=== PATIENT | male | born 1940 | race Caucasian/White ===

== ENCOUNTER 2019-12-22 11:55 | Emergency (ER) | payer MEDICARE, OTHER, SELFPAY ==
[2019-12-22 11:56] VITALS: BP 146/77; PULSE 70; RESP 14; TEMP 36.4; O2SAT 98; BMI 25.0
--- NOTE | 2019-12-22 12:14 | ED.EXTPRO ---
HPI - Extremity Problem <Ni Tang PA-C - Last Filed: 12/22/19 19:39> General Chief complaint: Extremity Problem,Nontraumatic Stated complaint: pain left lower buttocks for a few months Time Seen by Provider: 12/22/19 12:13 Source: patient Mode of arrival: Ambulatory Limitations: no limitations History of Present Illness HPI Narrative: This is a 79-year-old gentleman with a history of hypothyroid and hyperlipidemia who presents with left-sided positional buttock pain that has been going on for 6-8 weeks. He says the pain came on gradually, he initially thought it could be due to sitting on his wallet so he switched to a front pocket wallet, however this did not resolve the problem. He describes the pain as right in the bottom/middle of his buttock when he is sitting, and it is a sharp pain that is constant while sitting though he says it takes a little while to occur after he sits down. He says it is a 4 possibly a 5/10 when he is feeling it. He gets some relief from the pain if he changes his position, he has not tried heat, ice, he has been taking Aleve occasionally. He denies any recent change to his physical activity, any traumatic injury to the area, numbness, tingling, radiation of his pain, discoloration of his buttock or lower extremity, shortness of breath, chest pain, abdominal pain, back pain, saddle paresthesia, loss of bowel or bladder function, or any other symptoms. This is an isolated complaint and he says he has otherwise been in his normal state of health. He is currently living on a boat with his though he says that they walk at least a few miles every day, he is from [place] where his PCP is and present to the emergency department today because they are going to be heading [place] to [facility] where there is no hospital he hopes to have an answer for the cause of his pain. MD Complaint: extremity pain (Left buttock) Onset (ago): month(s) (2) Pain Consistency: intermittent Location: left and lower extremity Severity scale (1-10): 4 Quality: sharp Radiation: none Relieving factors: movement Associated symptoms: denies other symptoms Related Data Previous Rx's Medication Instructions Recorded lidocaine 3 patch TOP DAILY #30 each 12/22/19 Allergies Allergy/AdvReac Type Severity Reaction Status Date / Time No Known Drug Allergies Allergy Verified 12/22/19 12:04 Review of Systems <Ni Tang PA-C - Last Filed: 12/22/19 19:39> Review of Systems Narrative: GENERAL: Denies chills, fatigue, malaise, fever, sweats. HEENT: Denies sinus pain, ear pain, sore throat, difficulty swallowing, dizziness. RESPIRATORY: Denies dyspnea, cough, wheezing, hemoptysis, sputum. CARDIOVASCULAR: Denies chest pain, palpitations, orthopnea, edema, GASTROINTESTINAL: Denies nausea, vomiting, abdominal pain, diarrhea, constipation, melena. : Denies dysuria, frequency, incontinence, hematuria, urinary retention. MUSCULOSKELETAL: Positive for left buttock pain that occurs while he is sitting. Denies weakness, joint pain, or bony pain SKIN: Denies rash, skin lesions, or other NEUROLOGIC: Denies weakness, headache, numbness, change in speech, confusion, seizures, incoordination. PSYCHIATRIC: No concerning psychosocial issues. 12 point review of systems is negative except for those stated above Patient History <Ni Tang PA-C - Last Filed: 12/22/19 19:39> Social History Smoking Status: Unknown if ever smoked Smoking Status: Unknown if ever smoked alcohol intake frequency: 3 or more drinks per day Substance Use Type: does not use Exam <Ni Tang PA-C - Last Filed: 12/22/19 19:39> Narrative Exam Narrative: GENERAL: 79 year old patient appears stated age. Well-nourished, well-developed patient, in mild distress. HEAD: Atraumatic. Normocephalic. EYES: Pupils equal round and reactive. Extraocular motions intact. No scleral icterus. No injection or drainage. ENT: Nose without bleeding, purulent drainage. Throat without erythema, tonsillar hypertrophy or exudate. Airway patent. NECK: Trachea midline. Non tender CARDIOVASCULAR: Regular rate and rhythm without murmurs, gallops, or rubs. RESPIRATORY: Clear to auscultation. Breath sounds equal bilaterally. No wheezes, rales, or rhonchi. GASTROINTESTINAL: Abdomen soft, non-tender, nondistended. EXTREMITIES: No edema or joint tenderness. He is slightly tender at the ischial tuberosity on the left. It is not swollen or discolored. He has some tenderness of the left SI joint. Range of motion is intact active and passive, strength is 5/5 in lower extremities bilaterally without reproduction of his pain. BACK: Nontender without deformity or crepitance. No flank tenderness. NEURO: AOx3. SKIN: No rash or erythema of visible areas Initial Vital Signs Initial Vital Signs: Vital Signs Temperature 97.5 F L 12/22/19 11:56 Pulse Rate 70 12/22/19 11:56 Respiratory Rate 14 12/22/19 11:56 Blood Pressure 146/77 H 12/22/19 11:56 Pulse Oximetry 98 12/22/19 11:56 <Patrizia Liang MD - Last Filed: 12/24/19 18:48> Initial Vital Signs Initial Vital Signs: Vital Signs Temperature 97.5 F L 12/22/19 11:56 Pulse Rate 70 12/22/19 11:56 Respiratory Rate 14 12/22/19 11:56 Blood Pressure 146/77 H 12/22/19 11:56 Pulse Oximetry 98 12/22/19 11:56 Scores <Ni Tang PA-C - Last Filed: 12/22/19 19:39> GCS Norma coma scale eye opening: Spontaneous [place] coma scale verbal response: Orientated [place] coma scale motor response: Obey commands Norma coma scale total score: 15 Course <Ni Tang PA-C - Last Filed: 12/22/19 19:39> Orders Ordered: ED Orders 12/22/19 12:31 XR hip w pel if done LT 2V Stat XR lumbar spine 2-3V Stat Vital Signs Vital signs: Vital Signs - 8 hr 12/22/19 11:56 12/22/19 14:02 Temperature 97.5 F L Pulse Rate 70 63 Respiratory Rate 14 Blood Pressure 146/77 H 141/74 H Pulse Oximetry 98 100 <Patrizia Liang MD - Last Filed: 12/24/19 18:48> Orders Ordered: ED Orders 12/22/19 12:31 XR hip w pel if done LT 2V Stat XR lumbar spine 2-3V Stat Vital Signs Vital signs: Vital Signs - 8 hr 12/22/19 11:56 12/22/19 14:02 Temperature 97.5 F L Pulse Rate 70 63 Respiratory Rate 14 Blood Pressure 146/77 H 141/74 H Pulse Oximetry 98 100 MDM - Extremity (Nontraumatic) <Ni Tang PA-C - Last Filed: 12/22/19 19:39> Imaging Data xr hip: Attestation: I personally reviewed and interpreted this imaging study as follows: Radiologist's Impression: [address] [address] XRay Report Signed Patient: Ruthie Burns Jr RMR#: [id number] : 2At:[id number] Age/Sex: 79 / MDate of Service: 12/22/19 Loc: ED Accession Number: [id number] Procedure: XR hip w pel if done LT 2V Ordering Provider: Ni Tang P.A-C PROCEDURE: XR HIP W PEL IF DONE LT 2V INDICATIONS: left buttock pain TECHNIQUE: AP pelvis with lateral view(s) of the left hip(s). COMPARISON: None. FINDINGS: Bones: No fractures or dislocations. Pelvic ring appears intact. No suspicious bony lesions. Lower lumbar degenerative change. Mild left hip degenerative change. Soft tissues: The visualized bowel gas pattern is normal. No suspicious soft tissue calcifications. IMPRESSION: No evidence acute bony abnormality of the pelvis and left hip. Lumbar degenerative change. Left hip degenerative change. Dictated by: Monty Pollack M.D. on 12/22/2019 at 12:03 Approved by: Monty Pollack M.D. on 12/22/2019 at 12:17 xr lumbar: Attestation: I personally reviewed and interpreted this imaging study as follows: Radiologist's Impression: [address] [address] XRay Report Signed Patient: Ruthie Burns Jr RMR#: [id number] : [id number] Age/Sex: 79 / MDate of Service: 12/22/19 Loc: ED Accession Number: [id number] Procedure: XR lumbar spine 2-3V Ordering Provider: Ni Tang P.A-C PROCEDURE: XR LUMBAR SPINE 2-3V INDICATIONS: left buttock pain TECHNIQUE: 3 views of the lumbar spine were acquired. COMPARISON: None. FINDINGS: Bones: 5 [id number] vertebrae are present. There is extensive, severe multilevel degenerative disc disease with joint space obliteration and large osteophytes. Prominent lower lumbar facet arthropathy. Suspect multilevel canal stenosis. No vertebral body compression fractures. No suspicious bony lesions. Probable bilateral L5 pars defects. Soft tissues: Overlying bowel gas pattern is normal. No suspicious soft tissue calcifications. IMPRESSION: Advanced multilevel degenerative disc disease in lower lumbar facet hypertrophy. Suspect multilevel canal stenosis. 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 No evidence acute bony abnormality of the Lumbar spine Dictated by: Monty Pollack M.D. on 12/22/2019 at 12:25 Approved by: Monty Pollack M.D. on 12/22/2019 at 12:27 [facility] Narrative Medical decision making narrative: This is a 79-year-old gentleman with a history of a chill D, hypothyroid who presents to the emergency department with his present, complaining of at least 6 weeks of left buttock pain that is worse when he is sitting down. Differential diagnoses that were considered include sciatica, occult fracture, SI joint pain, DVT, muscle strain, degenerative changes, arthritis I have low suspicion for an acute process such as DVT. He has full normal range of motion and strength. Imaging did show significant joint space narrowing and degenerative disc disease. I advised him he would benefit from seeing orthopedic business account specialist to given the state of his lumbar spine and his new chronic buttock pain which may be related to nerve compression given he has possible multilevel canal stenosis. He was referred to [facility] as well as the [facility] [place] for follow-up visit scheduling. Is advised to try heat and ice and gentle stretching and was provided with a prescription for a lidocaine patch for 30 days. All questions were answered and return precautions were provided. Discharge Plan Departure Patient Disposition: Home Clinical Impression: Buttock pain, Degenerative disc disease at L5-S1 level Discharge Date/Time: 12/22/19 14:02 Instructions: DI for Sciatica, DI for Muscle Strain Activity Restrictions/Additional Instructions: Thank you for allowing us to be part of her care in the emergency department today. There is no evidence of an emergent or life threatening illness at this time, but follow up with your doctor in 1-2 days is recommended nonetheless to continue to rule out serious underlying causes of your symptoms. Please call the office for an appointment. Please return to the Emergency Department for any worsening or persistent symptoms. Please take your home medications as directed. I think you most likely have a muscle strain in your buttock, possibly some nerve compression of your sciatic nerve on the left side. Your x-ray showed significant degenerative disc disease and arthropathy in your lumbar spine, this could likely be related to the pain that you are having and I do advise that you follow-up with an orthopedic spine doctor regarding ongoing care. This type of pain can take time to resolve and may become chronic, I do recommend gentle stretching, you can try ice and heat, you can try alternating Tylenol and ibuprofen. Try to avoid activities that exacerbate your pain, specifically sitting for long periods of time. I providing you with the [facility] information so that you can work with them to schedule an appointment for follow-up with a primary care physician as you are not from this area. I am also providing you with a prescription for a topical medicine (lidocaine) which you can put in the area of your pain that may provide some relief. Prescriptions: New lidocaine 5 % adhesive patch,medicated 3 patch TOP DAILY Qty: 30 RF: 0 [facility] Ivon Pham MD [Physician] - <Patrizia Liang MD - Last Filed: 12/24/19 18:48> Cosign ED Attending Cosignature Attestation: I was immediately available in the department for consultation throughout this patient's visit. I agree with documentation as above. Patrizia Liang MD
--- NOTE | 2019-12-22 12:31 | DI.RAD.S_ITS ---
PROCEDURE: XR LUMBAR SPINE 2-3V INDICATIONS: left buttock pain TECHNIQUE: 3 views of the lumbar spine were acquired. COMPARISON: None. FINDINGS: Bones: 5 [id number] vertebrae are present. There is extensive, severe multilevel degenerative disc disease with joint space obliteration and large osteophytes. Prominent lower lumbar facet arthropathy. Suspect multilevel canal stenosis. No vertebral body compression fractures. No suspicious bony lesions. Probable bilateral L5 pars defects. Soft tissues: Overlying bowel gas pattern is normal. No suspicious soft tissue calcifications. IMPRESSION: Advanced multilevel degenerative disc disease in lower lumbar facet hypertrophy. Suspect multilevel canal stenosis. 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 No evidence acute bony abnormality of the Lumbar spine Dictated by: Monty Pollack M.D. on 12/22/2019 at 12:25 Approved by: Monty Pollack M.D. on 12/22/2019 at 12:27
--- NOTE | 2019-12-22 12:31 | DI.RAD.S_ITS ---
PROCEDURE: XR HIP W PEL IF DONE LT 2V INDICATIONS: left buttock pain TECHNIQUE: AP pelvis with lateral view(s) of the left hip(s). COMPARISON: None. FINDINGS: Bones: No fractures or dislocations. Pelvic ring appears intact. No suspicious bony lesions. Lower lumbar degenerative change. Mild left hip degenerative change. Soft tissues: The visualized bowel gas pattern is normal. No suspicious soft tissue calcifications. IMPRESSION: No evidence acute bony abnormality of the pelvis and left hip. Lumbar degenerative change. Left hip degenerative change. Dictated by: Monty Pollack M.D. on 12/22/2019 at 12:03 Approved by: Monty Pollack M.D. on 12/22/2019 at 12:17
[2019-12-22 14:02] VITALS: BP 141/74; PULSE 63; O2SAT 100
== END 2019-12-22 14:02 | disposition home or self-care (01) ==
PROVIDERS: Emergency Provider Student in an Organized Health Care Education/Training Program
DX: M51.37 Other intervertebral disc degeneration, lumbosacral region (principal); M79.18 Myalgia, other site
CPT/HCPCS: 72100; 73502; 99283